=== PATIENT | male | born 1990 | race Hispanic/Latino ===

== ENCOUNTER 2024-03-22 17:15 | Emergency (ER) | payer SELFPAY ==
[~2024-03-22] VITALS: Ht 160 cm; Wt 58.0 kg
[2024-03-22] MEDS ORDERED: ORPHENADRINE CITRATE 30 MG/ML AMP IM ONE (18:05)
[2024-03-22] MEDS ORDERED: KETOROLAC TROMETHAMINE 30 MG/ML SDV IM ONE (18:05)
[2024-03-22] MEDS ORDERED: NAPROXEN500 MG PO (18:06)
[2024-03-22] MEDS ORDERED: FLEXERIL5 M1 PO (18:06)
[2024-03-22] MEDS ORDERED: PREDNISONE50 MG PO (18:06)
[2024-03-22 18:21] VITALS: BP 123/82
== END 2024-03-22 18:20 | disposition home or self-care (01) | DRG 552 ==
LOC: ED 17:15
DX: M54.50 Low back pain, unspecified (principal)

== ENCOUNTER 2024-06-09 10:48 | Emergency (ER) | payer SELFPAY ==
[2024-06-09] VITALS (11 sets, daily range): BP systolic 86–115; BP diastolic 53–78
[~2024-06-09] VITALS: Ht 160 cm; Wt 62.5 kg
[~2024-06-09 10:48] MED LIST: FLEXERIL5 M1 PO; NAPROXEN500 MG PO; PREDNISONE50 MG PO
[2024-06-09] MEDS ORDERED: KETOROLAC TROMETHAMINE 30 MG/ML SDV IM ONE (11:15)
[2024-06-09] MEDS ORDERED: predniSONE 20 MG/TAB PO ONE (12:40)
[2024-06-09] MEDS ORDERED: METHOCARBAMOL 500 MG/TAB PO ONE (12:40)
[2024-06-09] MEDS ORDERED: METHOCARBAMOL500 MG PO (14:14)
[2024-06-09] MEDS ORDERED: NAPROXEN500 MG PO (14:14)
== END 2024-06-09 14:24 | disposition home or self-care (01) | DRG 552 ==
LOC: ED 10:48
DX: M54.50 Low back pain, unspecified (principal); M54.6 Pain in thoracic spine; M54.2 Cervicalgia